=== PATIENT | female | born 1980 | race Two or more races ===

== ENCOUNTER 2017-04-05 15:15 | Inpatient (IN) | payer MEDICAID ==
[~2017-04-05] VITALS: Ht 162.6 cm; Wt 110.0 kg
[~2017-04-05 15:15] MED LIST: ALPR0.25
[2017-04-05] MEDS ORDERED: SODIUM CHLORIDE 0.9% 1,000 ML IV ONE (15:53)
[2017-04-05] MEDS ORDERED: DIAZEPAM 5 MG/ML 2ML SYRG IV ONE (16:00)
[2017-04-05] MEDS ORDERED: HYDROmorphone HCL 2 MG/ML VL IV ONE (16:00)
[2017-04-05] MEDS ORDERED: methylPREDNISolone SOD SUCC 125 MG/2 ML VL IV ONE (16:00)
[2017-04-05] MEDS ORDERED: ONDANSETRON HCL 4 MG/2 ML VIAL IV ONE (16:00)
[2017-04-05 16:07] LABS: Basophils # (auto) 0 uL; Basophils % (auto) 0.3 % (0.0-2.0); CONDITION Y; Eosinophils # (auto) 0.3 uL; Eosinophils % (auto) 3.7 % (0.0-7.0); Hematocrit 38.3 % (36.0-46.0); Hemoglobin 13.1 g/dL (12.2-16.2); Lymphocytes # (auto) 1.7 uL; Lymphocytes % (auto) 19.3 % (10.0-50.0); Mean Corpuscular Hemoglobin 28.9 pg (28.0-32.0); Mean Corpuscular Hgb Conc. 34.1 g/dL (32.0-36.0); Mean Corpuscular Volume 84.6 fL (80.0-100.0); Mean Platelet Volume 8.5 fL (7.4-10.4); Monocytes # (auto) 0.3 uL; Monocytes % (auto) 3.6 % (0.0-12.0); Neutrophils # (auto) 6.5 uL; Neutrophils % (auto) 73.1 % (37.0-80.0); Platelet Count (auto) 270 10^3/uL (140-450); White Blood Cell 8.9 10^3/uL (4.4-10.8)
[2017-04-05] MEDS ORDERED: BACLOFEN 10 MG TAB PO ONE (16:15)
[2017-04-05] MEDS ORDERED: LORazepam 2MG/ML-1ML VIAL IV ONE (16:15)
[2017-04-05 16:31] LABS: Albumin 3.1 g/dL (3.4-5.0); BUN/Creatinine Ratio 8.6; Bilirubin, Total 0.3 mg/dL (0.2-1.0); Calcium 8.3 mg/dL (8.5-10.1); Potassium 3.5 mmol/L (3.5-5.1); Total Protein 7.6 g/dL (6.4-8.2)
[2017-04-05] MEDS: methylPREDNISolone SOD SUCC 40 MG/ML VL IV SCH (18:44)
[2017-04-05] MEDS ORDERED: LACTULOSE 20Gm/30ML SOLN PO PRN (18:45)
[2017-04-05] MEDS ORDERED: PROMETHAZINE HCL 25 MG/ML 1ML IV PRN (18:45)
[2017-04-05] MEDS ORDERED: LORazepam 0.5 MG TAB PO PRN (18:45)
[2017-04-05] MEDS ORDERED: TEMAZEPAM 15 MG CAP PO PRN (18:45)
[2017-04-05] MEDS ORDERED: HYDROcodone-ACET 5/325MG TAB PO PRN (18:45)
[2017-04-05] MEDS ORDERED: NITROGLYCERIN 0.4 MG SL TAB SL PRN (18:45)
[2017-04-05] MEDS ORDERED: MORPHINE SULF INJ 2 MG/ML SYRINGE 1ML IV PRN (18:45)
[2017-04-05] MEDS ORDERED: ACETAMINOPHEN 500 MG TAB PO PRN (18:45)
[2017-04-05] MEDS: SODIUM CHLORIDE 0.9% 1,000 ML IV SCH (18:47)
[2017-04-05] MEDS: MORPHINE SULFATE 4 MG/ML SYRG IV PRN (23:08)
[2017-04-06 05:00] VITALS: BP 106/50
[2017-04-06] MEDS: methylPREDNISolone SOD SUCC 40 MG/ML VL IV SCH (05:48)
[2017-04-06 09:00] VITALS: BP 105/40
[2017-04-06] MEDS ORDERED: PANTOPRAZOLE 40 MG TAB PO SCH (10:00)
[2017-04-06] MEDS: SODIUM CHLORIDE 0.9% 1,000 ML IV SCH (10:18)
[2017-04-06] MEDS: MORPHINE SULFATE 4 MG/ML SYRG IV PRN (10:23)
[2017-04-06 13:00] VITALS: BP 121/63
[2017-04-07 11:10] LABS: Sjogren's Anti-SS-A Antibody <0.2 AI (0.0-0.9)
== END 2017-04-06 16:30 | disposition home or self-care (01) | DRG 816 ==
LOC: ER 15:19 → TELE 15:20 → TELE-WESTW 22:07
PROVIDERS: ADMIT Internal Medicine; ATTEND Internal Medicine
DX: T63.481A Toxic effect of venom of other arthropod, accidental (unintentional), initial encounter (principal); Z68.41 Body mass index [BMI] 40.0-44.9, adult; I10 Essential (primary) hypertension; E66.01 Morbid (severe) obesity due to excess calories; F43.10 Post-traumatic stress disorder, unspecified; F41.9 Anxiety disorder, unspecified; F32.9 Major depressive disorder, single episode, unspecified; F17.210 Nicotine dependence, cigarettes, uncomplicated; Z82.3 Family history of stroke; Z83.3 Family history of diabetes mellitus; Z86.73 Personal history of transient ischemic attack (TIA), and cerebral infarction without residual deficits; Z87.442 Personal history of urinary calculi; Z71.89 Other specified counseling
CPT/HCPCS: 36415; 70450; 71010; 80053; 82550; 82607; 82746; 83516; 83605; 83735; 84443; 85025; 85652; 86038; 86141; 86225; 86235; 86431; 87040; 87081; 94761; 96361; 96374; 96375; J2405

== ENCOUNTER 2018-11-06 15:04 | Emergency (ER) | payer SELFPAY ==
[~2018-11-06] VITALS: Ht 162.6 cm; Wt 77.1 kg
[2018-11-06 16:32] VITALS: BP 134/78
[2018-11-06] MEDS ORDERED: ACETAMINOPHEN 500 MG TAB PO ONE (17:30)
== END 2018-11-06 18:11 | disposition home or self-care (01) ==
LOC: EDBD 15:04 → ER 15:12
DX: S32.10XA Unspecified fracture of sacrum, initial encounter for closed fracture (principal); F17.210 Nicotine dependence, cigarettes, uncomplicated; Z87.442 Personal history of urinary calculi; Y08.89XA Assault by other specified means, initial encounter; Y93.9 Activity, unspecified; Y99.8 Other external cause status; Y92.89 Other specified places as the place of occurrence of the external cause
CPT/HCPCS: 72220

== ENCOUNTER 2020-03-29 17:44 | Emergency (ER) | payer MEDICAID, OTHER ==
[~2020-03-29] VITALS: Ht 162.6 cm; Wt 86.2 kg
[2020-03-29 18:37] LABS: Basophils # (auto) 0.1 10 ^3/uL (0-0.2); Eosinophils # (auto) 0.2 10 ^3/uL (0-0.8); Hemoglobin 11.3 g/dL (12.2-16.2); Lymphocytes # (auto) 2.6 10 ^3/uL (0.4-5.4); Monocytes # (auto) 0.5 10 ^3/uL (0-1.3)
[2020-03-29 18:40] LABS: Basophils % (auto) 0.7 % (0.0-2.0); Eosinophils % (auto) 2.3 % (0.0-7.0); Hematocrit 34.3 % (36.0-46.0); Mean Corpuscular Hemoglobin 26.5 pg (28.0-32.0); Mean Corpuscular Hgb Conc. 32.9 g/dL (32.0-36.0); Mean Corpuscular Volume 80.7 fL (80.0-100.0); Monocytes % (auto) 5.6 % (0.0-12.0); Neutrophils # (auto) 6.3 10 ^3/uL (1.6-8.6); Neutrophils % (auto) 64.4 % (37.0-80.0); Platelet Count (auto) 252 10^3/uL (140-450); Red Blood Cells 4.25 10^6/uL (4.0-5.20); Red Cell Distribution Width 18.3 % (11.8-14.3); White Blood Cell 9.7 10^3/uL (4.4-10.8)
[2020-03-29 19:04] LABS: Alanine Aminotransferase 12 U/L (13-56); Albumin 2.9 g/dL (3.4-5.0); Anion Gap 5 (5-15); Aspartate Aminotransferase 7 U/L (15-37); Blood Urea Nitrogen 13 mg/dL (7-18); Calcium 7.8 mg/dL (8.5-10.1); Carbon Dioxide 23 mmol/L (21-32); Chloride 110 mmol/L (98-107); GFR African American 168 mL/min; GFR Non-African American 139 mL/min; Glucose 114 mg/dL (74-106); Potassium 3.7 mmol/L (3.5-5.1); Sodium 138 mmol/L (136-145)
[2020-03-29 19:09] LABS: Alkaline Phosphatase 78 U/L (45-117); Bilirubin, Total 0.1 mg/dL (0.2-1.0); Total Protein 7.2 g/dL (6.4-8.2)
[2020-03-29] MEDS ORDERED: IOHEXOL 350 MG/ML 100ML IJ ONE (20:01)
[2020-03-29 21:55] VITALS: BP 109/60
== END 2020-03-29 22:23 | disposition home or self-care (01) ==
LOC: ER 17:44
DX: R55 Syncope and collapse (principal); R42 Dizziness and giddiness; R53.1 Weakness; Z87.442 Personal history of urinary calculi
CPT/HCPCS: 36415; 70450; 71046; 71275; 80053; 83735; 84484; 85025; 85379; 86850; 86900; 86901; 93005; 99285; Q9967

== ENCOUNTER 2022-05-06 15:19 | Emergency (ER) | payer MEDICAID, OTHER ==
[~2022-05-06] VITALS: Ht 162.6 cm; Wt 204.0 kg
[2022-05-06] MEDS ORDERED: OXYCODONE W/ ACETAMINOPHEN 5/325MG TABLET PO ONE (23:45)
[2022-05-07 00:45] VITALS: BP 132/77
== END 2022-05-07 01:00 | disposition home or self-care (01) ==
LOC: ER 15:19 → EDBD 15:19 → ER 05-07 01:00
DX: S16.1XXA Strain of muscle, fascia and tendon at neck level, initial encounter (principal); S76.012A Strain of muscle, fascia and tendon of left hip, initial encounter; R51.9 Headache, unspecified; V43.52XA Car driver injured in collision with other type car in traffic accident, initial encounter; Y93.89 Activity, other specified; Y92.410 Unspecified street and highway as the place of occurrence of the external cause; Y99.8 Other external cause status
CPT/HCPCS: 70450; 71250; 72125; 74176